=== PATIENT | female | born 1970 | race Caucasian/White ===

== ENCOUNTER 2018-04-02 12:21 | Day surgery (SDC) | payer OTHER | END 2018-04-02 15:53 | disposition home or self-care (01) | LOC: GIL 12:21 | DX: R19.7 Diarrhea, unspecified (principal); K25.9 Gastric ulcer, unspecified as acute or chronic, without hemorrhage or perforation; I10 Essential (primary) hypertension; E66.9 Obesity, unspecified; Z68.33 Body mass index [BMI] 33.0-33.9, adult | CPT/HCPCS: 43239; 88305; 88312 ==